=== PATIENT | female | born 1995 | race Caucasian/White ===

== ENCOUNTER 2017-09-06 04:17 | Emergency (ER) | payer BC ==
[2017-09-06] MEDS ORDERED: XYLOCAINE 1% HCL 20 ML MDV ONE (04:28)
[2017-09-06 04:35] VITALS: O2SAT 97
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
[2017-09-06] MEDS ORDERED: Sodium Chloride 0.9% 1000 ML 1,000 ML IV STA (05:01)
[2017-09-06] MEDS ORDERED: Levofloxacin 500MG/100ML D5W 500 MG/100 ML BAG IV STA (05:03)
[2017-09-06 05:08] LABS: BASOPHIL % 0.3 % (0.0-0.4); Basophil (Absolute #) 0.03 (0-0.4); Eosinophil % 0.9 % (0.00-5.0); Eosinophil (Absolute #) 0.08 (0-0.5); Granulocyte Absolute (ANC) 4.91 (1.4-6.9); Granulocytes % 57.3 % (36.0-66.0); Hematocrit 40.4 % (35-47); Hemoglobin 13.9 gm/dl (12.0-16.0); Lymphocyte (Absolute #) 2.91 (1.0-4.6); Lymphocytes % 33.9 % (24.0-44.0); Mean Cell Volume 87.1 fl (78-100); Mean Corpuscular Hgb Concent. 34.4 g/dl (32-36); Mean Platelet Volume 9.4 fl (6-9.5); Monocyte (Absolute #) 0.65 (0.0-1.3); Monocytes % 7.6 % (0.0-12.0); Platelet Count 382 K/mm3 (150-450); Red Blood Count 4.64 M/mm3 (4.1-5.4); Red Cell Distribution Width 12.8 % (11.5-14.0); White Blood Count 8.6 K/mm3 (4.0-10.5)
[2017-09-06] MEDS ORDERED: Sodium Chloride 0.9% 1000 ML 1,000 ML ONE (05:15)
[2017-09-06] MEDS ORDERED: Levofloxacin 500MG/100ML D5W 500 MG/100 ML BAG IV ONE (05:15)
[2017-09-06 05:26] LABS: Amphetamine,Urine NEG. (NEGATIVE); Barbiturate,Urine NEG. (NEGATIVE); Benzodiazepine,Urine NEG. (NEGATIVE); Cocaine,Urine NEG. (NEGATIVE); Methadone,Urine NEG. (NEGATIVE); Opiate,Urine NEG. (NEGATIVE); PCP,Urine NEG. (NEGATIVE); THC,Urine NEG. (NEGATIVE)
[2017-09-06 05:27] LABS: ALBUMIN 3.9 g/dL (3.4-5.0); ALKALINE PHOSPHATASE 73 U/L (46-116); ANION GAP 16.1 MEQ/L (5-15); BLOOD UREA NITROGEN 8 mg/dL (9-20); CHLORIDE 109 mEq/L (98-107); Calcium 8.6 mg/dL (8.5-10.1); Creatinine 1 0.87 mg/dl (0.55-1.30); EST GLOMERULAR FILTRATION RATE > 60 ML/MIN; Glucose 127 MG/DL (70-110); Potassium 4.2 mEq/L (3.5-5.1); SALICYLATE < 2.8 mg/dl (2.8-20.0); SGOT/AST 19 U/L (15-37); SGPT/ALT 26 U/L (12-78); SODIUM 147 mEq/L (136-145); Total Protein 7.6 gm/dL (6.4-8.2)
[2017-09-06 05:30] LABS: ACETAMINOPHEN < 2.0 ug/ml (10-30)
[2017-09-06 10:43] VITALS: BP 140/74; PULSE 74
[2017-09-06] MEDS ORDERED: XYLOCAINE 1% HCL 20 ML MDV IJ ONE (19:15)
== END 2017-09-06 10:25 ==
LOC: ED 04:17
PROC: 0HQEXZZ Repair Left Lower Arm Skin, External Approach (ICD-10-PCS; principal; 2017-09-06)
DX: S51.812A Laceration without foreign body of left forearm, initial encounter (principal); X78.1XXA Intentional self-harm by knife, initial encounter; F10.129 Alcohol abuse with intoxication, unspecified
CPT/HCPCS: 12002; 36000; 36415; 80053; 80307; 84703; 85025; 96360; 96361; 96365; 99285; G0480; G0481; J1956